=== PATIENT | female | born 1935 | race Caucasian/White ===

== ENCOUNTER 2020-04-26 19:41 | Inpatient (IN) | payer MEDICARE, OTHER ==
[~2020-04-26] VITALS: Ht 153.4 cm; Wt 62.6 kg
[~2020-04-26 19:41] MED LIST: ALPR0.25; METO25TA3
--- NOTE | 2020-04-26 19:45 | NUR ---
PT BIBSELF C/O BILATERAL LOWER EXTREMITY PAIN AND SWELLING X2 WEEKS S/P BUG BITES. PT ALSO C/O HEADACHE AND ANXIETY, PT STATES "I'VE HAD A ROUGH COUPLE OF DAYS AND GOT AN EVICTION NOTICE, I'M NOT SURE WHAT TO DO". PT DENIES CP, SOB, DIZZINESS. PT AAOX4. RESPIRATIONS EVEN AND UNLABORED. SKIN WARM AND INTACT. NO ACUTE DISTRESS NOTED AT THIS TIME. PLACED ON CONTINUOUS FERTILIZER MIXER AND PULSE OX, WILL CONTINUE TO MONITOR.
[2020-04-26] MEDS ORDERED: ACETAMINOPHEN 325 MG TABLET ONE (20:18)
--- NOTE | 2020-04-26 20:25 | NUR ---
IV INITIATED R FOREARM 20G. LABS DRAWN FROM SITE. FULL DECATOR OPERATOR AT BEDSIDE FOR COLLECTION. IV INTACT AND PATENT, PLACED ON SALINE LOCK.
[2020-04-26 20:29] LABS: BASOPHILS # (AUTO) 0.1 /CMM (0.0-0.2); BASOPHILS % (AUTO) 0.9 % (0.0-2.0); EOSINOPHILS % (AUTO) 2.4 % (0.0-6.0); HEMATOCRIT 38 % (33-45); HEMOGLOBIN 12.7 g/dL (11.5-14.8); LYMPHOCYTES # (AUTO) 2.7 /CMM (0.8-4.8); LYMPHOCYTES % (AUTO) 29.7 % (20.0-44.0); MEAN CORPUSCULAR HGB CONC 33 g/dl (31.0-36.0); MEAN CORPUSCULAR VOLUME 90 fL (82-100); MONOCYTES # (AUTO) 1.2 /CMM (0.1-1.30); MONOCYTES % (AUTO) 13.2 % (2.0-12.0); NEUTROPHILS # (AUTO) 4.8 /CMM (1.8-8.9); NEUTROPHILS % (AUTO) 53.8 % (43.0-81.0); PLATELET COUNT (AUTO) 243 /CMM (150-450); RED BLOOD CELL COUNT(AUTO) 4.25 MIL/uL (4.0-5.2)
[2020-04-26] MEDS ORDERED: ACETAMINOPHEN 325 MG TABLET PO ONE (20:30)
[2020-04-26] MEDS ORDERED: ALPRAZOLAM 0.25 MG TABLET PO ONE (20:30)
[2020-04-26] MEDS ORDERED: ALPRAZOLAM 0.25 MG TABLET ONE (20:36)
--- NOTE | 2020-04-26 20:39 | NUR ---
PT BROUGHT BY RADIOLOGY TO CT
[2020-04-26 20:40] LABS: CALCIUM, SERUM 9.3 mg/dL (8.5-10.1); CARBON DIOXIDE 29 mmol/L (21-32); CHLORIDE 96 mmol/L (98-107); CREATININE 1.2 mg/dL (0.6-1.3); GLUCOSE 103 mg/dL (74-106); SODIUM SERUM 130 mmol/L (136-145); UREA NITROGEN, BLOOD 28 mg/dL (7-18)
[2020-04-26 20:52] LABS: B-TYPE NATRIURETIC PEPTIDE 7302 PG/ML (0-125)
--- NOTE | 2020-04-26 20:53 | NUR ---
PT RETURNED FROM CT
[2020-04-26] MEDS ORDERED: ASPIRIN 81 MG TAB.CHEW PO ONE (21:30)
[2020-04-26] MEDS ORDERED: FUROSEMIDE 40 MG/4 ML VIAL IV ONE (21:30)
[2020-04-26] MEDS ORDERED: FUROSEMIDE 40 MG/4 ML VIAL ONE (21:42)
[2020-04-26] MEDS ORDERED: ASPIRIN 81 MG TAB.CHEW ONE (21:42)
--- NOTE | 2020-04-26 21:49 | NUR ---
COVID SWAB COLLECTED AND SENT TO LAB
--- NOTE | 2020-04-26 23:01 | NUR ---
PT AMBULATORY TO RESTROOM WITH ASSISTANCE
--- NOTE | 2020-04-26 23:12 | NUR ---
ER SPOKE TO DR. MARTEL REGARDING PT ADMISSION.
--- NOTE | 2020-04-26 23:31 | NUR ---
TELE 308-2
--- NOTE | 2020-04-26 23:42 | NUR ---
REPORT GIVEN TO VALARIE THORPE FOR ROMIE
[2020-04-27] VITALS: BP 160/69
--- NOTE | 2020-04-27 | NUR ---
PATIENT CAME FROM ER, AWAKE, A/O X4. NO S/S DISTRESS NOTED. AFEBRILE. PATIENT IS CALM. AMBULATORY, STEADY GAIT. CALL LIGHT WITHIN REACH. BED ALARM ON. BED IN LOWEST AND LOCKED POSITION. HOB ELEVATED AT 30DEGREES.
--- NOTE | 2020-04-27 00:08 | NUR ---
PT TRANSFERRED PER ACLS PROTOCOL
[2020-04-27] MEDS ORDERED: HYDROCODONE/APAP 5/325MG TABLET PO PRN (01:00)
[2020-04-27] MEDS ORDERED: Z GUARD REMEDY 2 OZ OINT TP PRN (01:00)
[2020-04-27] MEDS ORDERED: METOPROLOL SUCCINATE 25 MG TAB.SR.24H PO SCH (01:00)
[2020-04-27] MEDS ORDERED: MAGNESIUM HYDROXIDE 30 ML UDC PO PRN (01:00)
[2020-04-27] MEDS ORDERED: ONDANSETRON HCL/PF 4 MG/2 ML VIAL IVP PRN (01:00)
[2020-04-27] MEDS ORDERED: MAG HYDROX/AL HYDROX/SIMETH 30 ML UDC PO PRN (01:00)
[2020-04-27] MEDS ORDERED: ACETAMINOPHEN 325 MG TABLET PO PRN (01:00)
[2020-04-27 04:00] VITALS: BP 170/76
--- NOTE | 2020-04-27 05:25 | NUR ---
CIVIL RIGHTS INVESTIGATOR CLOSING NOTES: PATIENT IN BED, ASLEEP AT THIS TIME. NO S/S DISTRESS NOTED. HOB ELEVATED AT 30 DEGREES AT ALL TIMES. NO COMPLAIN OF PAIN. CALL LIGHT WITHIN REACH. BED IN LOWEST AND LOCKED POSITION.
[2020-04-27 06:29] VITALS: BP 170/70
--- NOTE | 2020-04-27 06:43 | NUR ---
PATIENT'S JX=917/70, HR=66,INFORMED DR MARTEL WITH ORDER MADE AND CARRIED OUT.
[2020-04-27] MEDS ORDERED: CLONIDINE HCL 0.1 MG TABLET PO PRN (07:00)
--- NOTE | 2020-04-27 07:30 | NUR ---
ELECTRICAL DESIGN TECHNOLOGIST NOTES PT IN BED, AWAKE, ALERT AND ORIENTED, NO COMPLAINT OF PAIN OR ANY DISCOMFORT, RESPIRATIONS NORMAL, CALL LIGHT WITHIN REACH, BEING ASSISTED WITH BREAKFAST, NEEDS ATTENDED.
[2020-04-27 08:00] VITALS: BP 157/88
[2020-04-27] MEDS: FUROSEMIDE 40 MG/4 ML VIAL IV SCH (08:39)
[2020-04-27] MEDS ORDERED: ENOXAPARIN SODIUM 40 MG/0.4 ML DISP.SYRIN SQ SCH (10:00)
[2020-04-27] MEDS: ALPRAZOLAM 0.25 MG TABLET PO PRN (10:40)
[2020-04-27] MEDS: METOPROLOL TARTRATE 25 MG TABLET PO SCH ×2 (10:41→21:19)
[2020-04-27] MEDS: VALSARTAN 80 MG TABLET PO SCH (10:41)
[2020-04-27] MEDS: LISINOPRIL (10MG) 10 MG TABLET PO SCH (10:41)
[2020-04-27] MEDS: ENOXAPARIN SODIUM 30 MG/0.3 ML DISP.SYRIN SQ SCH (10:52)
[2020-04-27 16:31] LABS: APPEARANCE,URINE CLEAR (CLEAR); BILIRUBIN,URINE NEGATIVE (NEGATIVE); BLOOD, URINE NEGATIVE Ery/uL (NEGATIVE); KETONES,URINE NEGATIVE (NEGATIVE); LEUKOCYTE ESTERASE ,URINE NEGATIVE (NEGATIVE); NITRITE, URINE NEGATIVE (NEGATIVE); PROTEIN,URINE NEGATIVE (NEGATIVE); UGLUCOSE NEGATIVE (NEGATIVE); UROBILINOGEN,URINE 0.2 EU/dL (0.2)
[2020-04-27 16:32] LABS: COLOR,URINE STRAW (YELLOW)
[2020-04-27 16:36] LABS: CREATININE, URINE < 13.0 MG/DL (30.0-125.0); URINE SODIUM, RANDOM 97 mmol/l (40-220); URINE TOTAL PROTEIN 1.2 mg/dL (0-11.9)
[2020-04-27 17:18] LABS: EOSINOPHIL,URINE None Seen
--- NOTE | 2020-04-27 19:00 | NUR ---
RESIDENTIAL AIR SEALING TECHNICIAN NOTES PT IN BED, AWAKE, ALERT AND ORIENTED, DENIES PAIN, BREATHING PATTERN NORMAL, ABLE TO AMBULATE TO THE BATHROOM NEEDED, WITH STEADY GAIT, CALL LIGHT WITHIN REACH, NEEDS ATTENDED.
--- NOTE | 2020-04-27 19:00 | NUR ---
SCHOOL YEAR NANNY OPENING NOTES: RECEIVED PATIENT IN BED, AWAKE, A/O X4. NO S/S DISTRESS NOTED. CALL LIGHT WITHIN REACH. NO COMPLAIN OF PAIN. BED IN LOWEST AND LOCKED POSITION. INSTRUCTED TO CALL FOR ANY HELP, PATIENT VERBALIZED UNDERSTANDING. BRP. AMBULATORY WITH STEADY GAIT. PATIENT IS CALM AT THIS TIME.
[2020-04-27 20:00] VITALS: BP 109/57
[2020-04-28] VITALS: BP 131/75
[2020-04-28 00:59] VITALS: BP 131/75
--- NOTE | 2020-04-28 06:26 | NUR ---
INSURANCE OFFICE SUPERVISOR CLOSING NOTES: PATIENT IN BED, ASLEEP. NO S/S DISTRESS NOTED. NO COMPLAIN OF PAIN. CALL LIGHT WITHIN REACH. BED IN LOWEST AND LOCKED POSITION. AMBULATORY.
--- NOTE | 2020-04-28 07:03 | NUR ---
RN OPENING NOTE RECEIVED PT AWAKE IN BED AT THIS TIME. AOX4. PT ON EXTERNAL TELE ASSISTANT STRENGTH COACH READING SR IN THE 60S. NO SOB NOTED, NO S/S OF ANY ACUTE DISTRESS NOTED. NO C/O PAIN AT THIS TIME. RESPIRATIONS ARE EVEN AND UNLABORED WITH EQUAL RISE AND FALL IN CHEST. IV ACCESS NOTED IN RFA G#20, PATENT, INTACT AND FLUSHING WELL. FALL AND SAFETY PRECAUTION IN PLACE AND MAINTAINED AT ALL TIMES. BED IN LOWEST LOCKED POSITION, HOB ELEVATED, RAILS UP X 2, CALL LIGHT WITHIN REACH. WILL CONTINUE TO MONITOR
[2020-04-28 07:27] LABS: ALANINE AMINOTRANSFERASE 19 U/L (12-78); ALBUMIN 3.2 g/dL (3.4-5.0); ALKALINE PHOSPHATASE 83 U/L (46-116); ASPARTATE AMINOTRANSFERASE 32 U/L (15-37); BILIRUBIN,TOTAL 0.4 mg/dL (0.2-1.0); CALCIUM, SERUM 8.4 mg/dL (8.5-10.1); CARBON DIOXIDE 30 mmol/L (21-32); CHLORIDE 94 mmol/L (98-107); CREATININE 1.5 mg/dL (0.6-1.3); GLUCOSE 91 mg/dL (74-106); MAGNESIUM 1.8 mg/dL (1.8-2.4); PHOSPHORUS 4.1 mg/dL (2.5-4.9); POTASSIUM 3.7 mmol/L (3.5-5.1); SODIUM SERUM 132 mmol/L (136-145); TOTAL PROTEIN, SERUM 6.6 g/dL (6.4-8.2); UREA NITROGEN, BLOOD 37 mg/dL (7-18)
[2020-04-28 07:35] LABS: CREATINE KINASE, TOTAL 229 U/L (26-192); THYROID STIMULATING HORMONE 2.141 uIU/mL (0.358-3.74); URIC ACID 8.4 mg/dL (2.6-7.2)
[2020-04-28 07:55] LABS: BASOPHILS # (AUTO) 0.1 /CMM (0.0-0.2); BASOPHILS % (AUTO) 0.8 % (0.0-2.0); EOSINOPHILS % (AUTO) 5.1 % (0.0-6.0); HEMATOCRIT 39 % (33-45); HEMOGLOBIN 12.6 g/dL (11.5-14.8); LYMPHOCYTES # (AUTO) 2.8 /CMM (0.8-4.8); LYMPHOCYTES % (AUTO) 30.5 % (20.0-44.0); MEAN CORPUSCULAR HGB CONC 33 g/dl (31.0-36.0); MEAN CORPUSCULAR VOLUME 90 fL (82-100); MONOCYTES # (AUTO) 1.4 /CMM (0.1-1.30); MONOCYTES % (AUTO) 14.8 % (2.0-12.0); NEUTROPHILS # (AUTO) 4.6 /CMM (1.8-8.9); NEUTROPHILS % (AUTO) 48.8 % (43.0-81.0); PLATELET COUNT (AUTO) 248 /CMM (150-450); RED BLOOD CELL COUNT(AUTO) 4.26 MIL/uL (4.0-5.2); WHITE BLOOD COUNT (AUTO) 9.3 K/uL (4.3-11.0)
[2020-04-28 08:00] VITALS: BP 133/63
[2020-04-28] MEDS: FUROSEMIDE 40 MG/4 ML VIAL IV SCH (09:08)
[2020-04-28] MEDS: METOPROLOL TARTRATE 25 MG TABLET PO SCH ×2 (09:08→20:49)
[2020-04-28] MEDS: ALPRAZOLAM 0.25 MG TABLET PO PRN ×2 (09:08→16:42)
[2020-04-28] MEDS: VALSARTAN 80 MG TABLET PO SCH (09:09)
[2020-04-28] MEDS: LISINOPRIL (10MG) 10 MG TABLET PO SCH (09:09)
[2020-04-28] MEDS: ENOXAPARIN SODIUM 30 MG/0.3 ML DISP.SYRIN SQ SCH (09:10)
--- NOTE | 2020-04-28 09:10 | NUR ---
PT C/O OF ANXIETY AT THIS TIME. VS WNL. PT REQUESTED FOR XANAX. PER PT REQUEST, XANAX 0.25MG PO Q6HR PRN WAS ADMINISTERED AT THIS TIME ORDERED. WILL CONTINUE TO MONITOR
[2020-04-28 16:00] VITALS: BP 122/76
--- NOTE | 2020-04-28 16:42 | NUR ---
PT C/O OF ANXIETY AT THIS TIME. BP 122/76, P 71, RR 18 T 98.3, SPO2 97. PER PT REQUEST, XANAX 0.25MG PO Q6HR PRN WAS ADMINISTERED AT THIS TIME PER ORDER. WILL CONTINUE TO MONITOR
--- NOTE | 2020-04-28 18:59 | NUR ---
RN CLOSING NOTES PT AWAKE IN BED AT THIS TIME. PT REMAINED STABLE THROUGHOUT SHIFT. PT KEPT CLEAN AND DRY. ALL CARE, NEEDS, MEDICATION AND TREATMENT ADMINISTERED ANTICIPATED PER ORDER. SAFETY PRECAUTION IN PLACE AND MAINTAINED AT ALL TIMES. BED IN LOWEST LOCKED POSITION, HOB ELEVATED, RAILS UP X 2, CALL LIGHT WITHIN REACH. WILL ENDORSE TO ARMAMENT REPAIRER NURSE FOR ROMIE
--- NOTE | 2020-04-28 19:02 | NUR ---
MS RN OPENING NOTES: RECEIVED PATIENT IN BED, AWAKE, A/O X4. HARD OF HEARING. CALL LIGHT WITHIN REACH. BED IN LOWEST AND LOCKED POSITION. NO S/S DISTRESS NOTED. NO COMPLAIN OF PAIN. PATIENT IS CALM AND COMFORTABLE.
[2020-04-28 20:00] VITALS: BP 96/59
--- NOTE | 2020-04-28 21:58 | NUR ---
PATIENT REFUSED THE BED ALARM TO BE ON, AND REFUSED TO WEAR HOSPITAL SOCKS.
--- NOTE | 2020-04-29 06:26 | NUR ---
MS RN CLOSING NOTES: PATIENT IN BED, AWAKE, A/O X4. JUST WENT TO THE BATHROOM, VOIDED. AMBULATED WITH STEADY GAIT. NO S/S OF DISTRESS NOTED. NO COMPLAIN OF PAIN. CALL LIGHT WITHIN REACH. BED IN LOWEST AND LOCKED POSITION.
[2020-04-29 06:49] LABS: BASOPHILS # (AUTO) 0.1 /CMM (0.0-0.2); EOSINOPHILS % (AUTO) 5.5 % (0.0-6.0); HEMATOCRIT 38 % (33-45); HEMOGLOBIN 12.7 g/dL (11.5-14.8); LYMPHOCYTES # (AUTO) 3.4 /CMM (0.8-4.8); LYMPHOCYTES % (AUTO) 37.5 % (20.0-44.0); MEAN CORPUSCULAR HGB CONC 33 g/dl (31.0-36.0); MEAN CORPUSCULAR VOLUME 90 fL (82-100); MONOCYTES # (AUTO) 1.3 /CMM (0.1-1.30); MONOCYTES % (AUTO) 14.4 % (2.0-12.0); NEUTROPHILS # (AUTO) 3.7 /CMM (1.8-8.9); NEUTROPHILS % (AUTO) 41.6 % (43.0-81.0); PLATELET COUNT (AUTO) 250 /CMM (150-450); RED BLOOD CELL COUNT(AUTO) 4.28 MIL/uL (4.0-5.2)
--- NOTE | 2020-04-29 07:03 | NUR ---
MS RN OPENING NOTE RECEIVED PT RESTING IN BED AT THIS TIME. AOX4. NO SOB NOTED, NO S/S OF ANY ACUTE DISTRESS NOTED. NO C/O PAIN AT THIS TIME. RESPIRATIONS ARE EVEN AND UNLABORED. IV ACCESS NOTED IN RFA G#20, PATENT, INTACT AND FLUSHING WELL. FALL AND SAFETY PRECAUTION IN PLACE AND MAINTAINED AT ALL TIMES. BED IN LOWEST LOCKED POSITION, HOB ELEVATED, RAILS UP X 2, CALL LIGHT WITHIN REACH. WILL CONTINUE TO MONITOR
[2020-04-29 08:00] VITALS: BP 162/84
[2020-04-29 08:07] LABS: PTH, INTACT 59 pg/mL (15-65)
[2020-04-29 08:19] LABS: CALCIUM, SERUM 8.9 mg/dL (8.5-10.1); CARBON DIOXIDE 30 mmol/L (21-32); CHLORIDE 95 mmol/L (98-107); CREATININE 1.5 mg/dL (0.6-1.3); GLUCOSE 93 mg/dL (74-106); POTASSIUM 3.5 mmol/L (3.5-5.1); SODIUM SERUM 132 mmol/L (136-145); UREA NITROGEN, BLOOD 43 mg/dL (7-18)
--- NOTE | 2020-04-29 08:39 | NUR ---
WOUND CARE CONSULT: PT SITTING UP AND AGITATED. REFUSED SKIN ASSESSMENT AT THIS TIME. RN AWARE OF PT ANXIETY/AGITATION. WILL ATTEMPT TO SEE PT AT ANOTHER TIME. CURRENT BOUBACAR SCORE IS 21.
[2020-04-29] MEDS: ENOXAPARIN SODIUM 30 MG/0.3 ML DISP.SYRIN SQ SCH (08:58)
[2020-04-29 08:59] VITALS: BP 162/84
[2020-04-29] MEDS: VALSARTAN 80 MG TABLET PO SCH (08:59)
[2020-04-29] MEDS: METOPROLOL TARTRATE 25 MG TABLET PO SCH (08:59)
[2020-04-29] MEDS: FUROSEMIDE 40 MG/4 ML VIAL IV SCH (08:59)
--- NOTE | 2020-04-29 10:44 | NUR ---
WOUND CARE CONSULT: PT PRESENTS WITH SOME DRY SCABS ON FEET AND LOWER LEGS, PRESENT ON ADMISSION. NO DRAINAGE, TENDERNESS OR ERYTHEMA NOTED. PT STATES THAT SHE SCRATCHES AT HER SKIN SOMETIMES. HEMOSIDERIN STAINING NOTED TO LOWER LEGS. CURRENT BOUBACAR SCORE IS 21. WILL SEE PRN.
[2020-04-29] MEDS: POTASSIUM CHLORIDE 20 MEQ TAB.PRT.SR PO SCH ×3 (11:45→13:51)
[2020-04-29] MEDS ORDERED: VALS80TA2 PO (12:50)
[2020-04-29] MEDS ORDERED: METO25TA20 PO (12:50)
--- NOTE | 2020-04-29 14:09 | NUR ---
Social Service consult requested by Iban Jean NP as patient is being evicted from her home. Patient is an 85 year-old female, alert and oriented x4. Patient reports that she has no where to go after discharge. Per patient, she has been calling some friends but has not been able to find a secure home. Patient does not want to pay $900 for a living facility. Per patient, she has food stamps and will not need them if she pays for a living facility and she will not be able to pay her phone bill. [facility] this [facility] SW was not able to contact a landlord. This SW contacted the emergency number and spoke with Dejuan. Per Dejuan, a landlord will give this SW a callback. Per Dejuan, he cannot provide the direct phone number without receiving clearance. Patient provided this SW a friends number, Nita, . This SW attempted to speak with Nita, unfortunately this SW had to leave a voicemail. This SW to remain available for all needs regarding this patient.
--- NOTE | 2020-04-29 15:28 | NUR ---
This SW returned to speak with the patient. Patient has not been able to contact a friend willing to receive patient in their home. This SW asked the patient if she would like to be referred to an independent living facility. Patient stated that this could be something she is interested in and patient would only like to pay maximum $400 a month. This SW to provide Paint Booth Operator VALARIE Vasquez with this information.
--- NOTE | 2020-04-29 16:27 | NUR ---
This SW received a call from patient's friend Nita, . Nita informed this SW that she cannot provide help for the patient as she is 89 year-old and caring for her dying brother. This SW understood and thanked Nita for her time and callback.
--- NOTE | 2020-04-29 16:28 | NUR ---
Windows Phone Developer VALARIE Vasquez spoke to patient with this SW present. Patient will go back to her apartment to pack up some belongings and from her home go to an independendt living facility that Windows Phone Developer VALARIE Vasquez referred the patient to.
--- NOTE | 2020-04-29 16:50 | NUR ---
MANAGER INVENTORY CONTROL NOTES PT DISCHARGED TO HOME AT THIS TIME. PT IN STABLE CONDITION. ALL CARE, NEEDS, TREATMENT AND MEDICATIONS ADMINISTERED ANTICIPATED PER ORDER. PT KEPT CLEAN AND DRY. ALL DISCHARGE INSTRUCTIONS PROVIDED TO PT. PT VERBALIZED UNDERSTANDING. PT'S BELONGINGS ACCOUNTED FOR, SIGNED BY PT AND FILED IN CHART. IV REMOVED, PRESSURE APPLIED, SECURE WITH GAUZE AND TAPE. NO BLEEDING OR INFILTRATION NOTED. PT TRANSPORTED TO [facility] ON WHEEL CHAIR BY CHOLO WONG. PT PICKED UP BY CAB
[2020-04-30 08:06] LABS: *SPE A/G RATIO 0.8 (0.7-1.7); *SPE ALBUMIN 2.6 g/dL (2.9-4.4); *SPE ALPHA-1-GLOBULIN 0.2 g/dL (0.0-0.4); *SPE ALPHA-2-GLOBULIN 0.7 g/dL (0.4-1.0); *SPE BETA GLOBULIN 1.1 g/dL (0.7-1.3); *SPE GLOBULIN, TOTAL 3.3 g/dL (2.2-3.9); *SPE M-SPIKE Not Observed g/dL (Not Observed); *SPEGAMMA GLOBULIN 1.3 g/dL (0.4-1.8)
== END 2020-04-29 17:00 | disposition home or self-care (01) | DRG 291 ==
LOC: ER 19:41 → TELE 23:32 → MED 04-28 10:40
PROVIDERS: ADMIT Internal Medicine; ATTEND Nurse Practitioner Acute Care
DX: I13.0 Hypertensive heart and chronic kidney disease with heart failure and stage 1 through stage 4 chronic kidney disease, or unspecified chronic kidney disease (principal); N17.0 Acute kidney failure with tubular necrosis; E87.1 Hypo-osmolality and hyponatremia; I50.9 Heart failure, unspecified; N18.9 Chronic kidney disease, unspecified; F41.9 Anxiety disorder, unspecified; I25.10 Atherosclerotic heart disease of native coronary artery without angina pectoris; Z79.899 Other long term (current) drug therapy; I87.2 Venous insufficiency (chronic) (peripheral); S80.862A Insect bite (nonvenomous), left lower leg, initial encounter; S80.861A Insect bite (nonvenomous), right lower leg, initial encounter; F41.0 Panic disorder [episodic paroxysmal anxiety]
CPT/HCPCS: 36415; 70450-TC; 71045-TC; 80048-TC; 80053-TC; 81000-TC; 82550-TC; 82570-TC; 83735-TC; 83880; 83935-TC; 83970; 84100-TC; 84155; 84155-TC; 84165; 84300-TC; 84443-TC; 84484-TC; 84550-TC; 85025-TC; 85730-TC; 87081-TC; 93307-TC; C9803-CS; G0378; J1650; J1940